=== PATIENT | male | born 1990 | race African-American/Black ===

== ENCOUNTER 2017-01-15 16:04 | Inpatient (IN) | payer MEDICAID ==
[~2017-01-15] VITALS: Ht 170.2 cm; Wt 69.1 kg
[2017-01-15 19:49] VITALS: BP 124/76
[2017-01-15] MEDS ORDERED: PLEASE ENTER HEIGHT AND WEIGHT MC SCH (22:00)
[2017-01-15] MEDS ORDERED: ACETAMINOPHEN 325 MG TABLET PO PRN (22:00)
[2017-01-15] MEDS ORDERED: POLYETHYLENE GLYCOL 17 GM PACKET PO PRN (22:00)
[2017-01-15] MEDS ORDERED: BISACODYL 10 MG SUPP PR PRN (22:00)
[2017-01-15] MEDS ORDERED: CEFTRIAXONE PMX 1GM/50ML 50 ML IV SCH (22:00)
[2017-01-15] MEDS: ONDANSETRON 2MG/ML, 2ML IVP PRN (22:20)
[2017-01-15] MEDS: PLEASE ENTER ALLERGIES MC SCH ×4 (22:21→23:01)
[2017-01-15] MEDS: SODIUM CHLORIDE 0.9% 1,000 ML IV SCH (22:32)
[2017-01-15] MEDS: NICOTINE 21 MG/24 HR PATCH.TD24 TD SCH (22:47)
[2017-01-15] MEDS: HEPARIN 5,000 UNITS/ML, 1ML SQ SCH (22:48)
[2017-01-16 02:18] VITALS: BP 115/73
[2017-01-16] MEDS: SODIUM CHLORIDE 0.9% 1,000 ML IV SCH ×4 (04:08→21:37)
[2017-01-16] MEDS: OXYcodone IR 5MG TABLET PO PRN ×3 (04:33→21:37)
[2017-01-16] MEDS: HEPARIN 5,000 UNITS/ML, 1ML SQ SCH ×3 (06:03→22:37)
[2017-01-16 06:05] LABS: BLOOD UREA NITROGEN 22 mg/dL (7-18)
[2017-01-16 06:11] LABS: ASPARTATE AMINO TRANSFERASE 40 U/L (15-37)
[2017-01-16 06:55] LABS: DIFF TOTAL CELLS COUNTED 100 CELL DIFF
[2017-01-16 06:58] LABS: VERIFY COUNTS? YES
[2017-01-16 07:30] VITALS: BP 109/71
[2017-01-16] MEDS ORDERED: SENNA/DOCUSATE TABLET PO SCH (09:00)
[2017-01-16] MEDS: ONDANSETRON 2MG/ML, 2ML IVP PRN ×2 (12:20→22:37)
[2017-01-16 12:50] VITALS: BP 123/88
[2017-01-16 19:13] VITALS: BP 125/82
[2017-01-16] MEDS: NICOTINE 21 MG/24 HR PATCH.TD24 TD SCH (22:37)
[2017-01-17 01:44] VITALS: BP 124/80
== END 2017-01-17 02:55 | disposition left against medical advice (07) | DRG 683 ==
LOC: 4WST 18:53
PROVIDERS: ADMIT Family Medicine; ATTEND Family Medicine
DX: N17.9 Acute kidney failure, unspecified (principal); N39.0 Urinary tract infection, site not specified; M62.82 Rhabdomyolysis; F17.210 Nicotine dependence, cigarettes, uncomplicated; S09.90XA Unspecified injury of head, initial encounter; Z53.21 Procedure and treatment not carried out due to patient leaving prior to being seen by health care provider; Z90.81 Acquired absence of spleen; Z91.018 Allergy to other foods
CPT/HCPCS: 36415; 74176; 80053; 81001; 82436; 82550; 82570; 83605; 83735; 84133; 84300; 85025; 87086; J0696; J1644; J2405; J7030